=== PATIENT | male | born 1960 | race Caucasian/White ===

== ENCOUNTER → 2019-08-11 | Outpatient (CLI) | payer OTHER ==
[2014-10-14 09:45] VITALS: BP 124/77
[~2019-08-11] MED LIST: ALPR1TAB2 PO; ASPI-482 PO; ATOR40TA59 PO; CLOT15CR3 TP; EMPA25TA PO; FURO-69 PO; INSU100I13 SQ; LOSA100T14 PO; LOSA25TA PO; METF500T16 PO; NIAC500T PO; POTA20TA4 PO; SIMV20TA18 PO
== END ==
LOC: LAB 08:34
PROVIDERS: ATTEND Nurse Anesthetist, Certified Registered
DX: Z11.59 Encounter for screening for other viral diseases (principal)
CPT/HCPCS: U0003-CS

== ENCOUNTER → 2019-08-14 | Day surgery (SDC) | payer OTHER ==
[~2019-08-14] MED LIST changes: +ACETAMINOPHEN 325 MG TABLET PO PRN; +ALBUTEROL SULFATE 2.5 MG/3 ML NEBU. NEB PRN; +ATROPINE 0.5 MG/5 ML DISP.SYRIN. IV PRN; +GLYCOPYRROLATE 1 MG/5 ML VIAL. ONE; +ONDANSETRON PF 4 MG/2 ML VIAL. IV PRN; +PROPOFOL 10,000 MCG/ML (20ML) VIAL IV ONE; +diphenhydrAMINE 50 MG/ML VIAL IV PRN
[2019-08-14] MEDS: IV RINGERS SOLUTION,LACTATED 1,000 ML IV SCH (07:10)
[2019-08-14 08:47] VITALS: BP 136/75
--- NOTE | 2019-08-15 15:08 | PATHOLOGY ---
[facility] Accession Number: [id number] . 01 Material submitted: . PART A: cecum - CECAL POLYP PART B: colon - ASCENDING POLYP. Modifiers: ascending PART C: hepatic flexure - HEPATIC FLEXURE POLYP PART D: colon - TRANSVERSE POLYP X2. Modifiers: transverse PART E: colon - DESCENDING POLYP X2. Modifiers: descending PART F: colon - SIGMOID POLYP. Modifiers: sigmoid . 01 Clinical history: . Giardiasis . 02 Diagnosis: A. Colon biopsies, cecal polyp: - Tubular adenoma. . B. Colon biopsies, ascending colon polyp: - Hyperplastic polyp. . C. Colon biopsy, hepatic flexure polyp: - Hyperplastic mucosal-associated lymphoid aggregate. . D. Colon biopsies, transverse colon polyp x2: - Tubular adenoma. - Hyperplastic polyp. . E. Colon biopsies, descending colon polyp x2: - Hyperplastic polyps/prominent mucosal folds. . F. Colon biopsies, sigmoid polyp: - Hyperplastic polyp. (JPM:[facility] 08/15/2019) [facility] 08/15/2019 1503 Local . 02 Comment: There is no high-grade dysplasia or evidence of malignancy. (JP:[facility] 08/15/2019) . 02 Electronically signed: . Sam Fermin MD, Pathologist NPI- [id number] . 01 Gross description: . A. The specimen is received in formalin, labeled "Ki Widdice, cecal polyp". Received are two segments of pale rodriguez soft tissue ranging in size from 0.2 to 0.3 cm in maximum dimensions. The specimen is submitted entirely in cassette A1. . B. The specimen is received in formalin, labeled "Ki Widdice, ascending polyp". Received are two segments of pale rodriguez soft tissue ranging in size from 0.1 to 0.3 cm in maximum dimensions. The specimen is submitted entirely in cassette B1. . C. The specimen is received in formalin, labeled "Ki Widdice, hepatic flexure polyp". Received is a segment of pale rodriguez soft tissue measuring 0.4 cm in maximum dimensions. The specimen is submitted entirely in cassette C1. . D. The specimen is received in formalin, labeled "Ki Widdice, transverse polyp x2". Received is light rodriguez vegetative material and mixed with possible soft tissue measuring 0.8 x 0.7 x 0.2 cm in aggregate dimensions. The specimen is filtered and entirely submitted in cassette D1. . E. The specimen is received in formalin, labeled "Ki Widdice, descending polyp x2". Received are four segments of pale rodriguez soft tissue ranging in size from 0.4 to 0.6 cm in maximum dimensions. The specimen is submitted entirely in cassette E1. . F. The specimen is received in formalin, labeled "Ki Widdice, sigmoid polyp". Received are three segments of pale rodriguez soft tissue ranging in size from 0.4 to 0.6 cm in maximum dimensions. The specimen is submitted entirely in cassette F1. ([facility]; 08/14/2019) [facility] 08/15/2019 1013 Local . 02 Pathologist provided ICD-10: D12.0, K63.5, D12.3 . 02 CPT . 852625, 998838, 444120, 181217, 022835, 848113 Specimen Comment: A courtesy copy of this report has been sent to [phone], [phone] Specimen Comment: [id number] Specimen Comment: Report sent to / DR COTTON Performed at: 01 [facility] [address], [place] [id number] MD Juanjo Angulo MD Phone: [phone] Performed at: 02 [facility] [address] [place], [place] [id number] MD Sam Fermin MD Phone: [phone]
== END | disposition home or self-care (01) ==
LOC: SURG 06:30
PROVIDERS: ATTEND Internal Medicine Gastroenterology
DX: Z12.11 Encounter for screening for malignant neoplasm of colon (principal); K63.5 Polyp of colon; E78.00 Pure hypercholesterolemia, unspecified; I10 Essential (primary) hypertension; E66.9 Obesity, unspecified; Z68.30 Body mass index [BMI] 30.0-30.9, adult; Z88.8 Allergy status to other drugs, medicaments and biological substances; Z87.39 Personal history of other diseases of the musculoskeletal system and connective tissue
CPT/HCPCS: 45380; 45385; 88305; J2704; J3490; J7120; 45378

== ENCOUNTER 2020-12-19 07:39 | Emergency (ER) | payer OTHER ==
[~2020-12-19] VITALS: Ht 182.9 cm; Wt 97.0 kg
[~2020-12-19 07:39] MED LIST changes: -ACETAMINOPHEN 325 MG TABLET PO PRN; -ALBUTEROL SULFATE 2.5 MG/3 ML NEBU. NEB PRN; -ATROPINE 0.5 MG/5 ML DISP.SYRIN. IV PRN; -GLYCOPYRROLATE 1 MG/5 ML VIAL. ONE; -ONDANSETRON PF 4 MG/2 ML VIAL. IV PRN; +POTA-121 PO; -POTA20TA4 PO; -PROPOFOL 10,000 MCG/ML (20ML) VIAL IV ONE; -diphenhydrAMINE 50 MG/ML VIAL IV PRN
[2020-12-19 08:05] VITALS: BP 120/78
--- NOTE | 2020-12-19 08:49 | PHYS DOC ---
Past History Past Medical History: Diabetes, Hypertension Additional Past Medical Histor: jaundice Past Surgical History: No Surgical History Alcohol Use: None Drug Use: None General Adult EDM: Chief Complaint: FOOT INJURY PAIN HPI: HPI: 60-year-old male presents with left foot pain. The patient dropped a piece of metal on his foot on Sunday. He was wearing steel toed boots. He was able to manage the pain with ibuprofen on Sunday. He had some mild swelling yesterday and more tender. He cannot put his full weight on the foot. He woke up in the middle of the night with significant swelling of the foot and ecchymosis down around the toes. He had difficulty getting any sleep. It is now quite painful to put weight on the foot. He decided he should come in for evaluation. He denies any other injuries or concerns at this time. Review of Systems: Review of Systems: Constitutional: Denies fever or chills Eyes: Denies change in visual acuity HENT: Denies nasal congestion or sore throat Respiratory: Denies cough or shortness of breath Cardiovascular: Denies chest pain or edema GI: Denies abdominal pain, nausea, vomiting, bloody stools or diarrhea : Denies dysuria Musculoskeletal: Left foot pain Integument: Denies rash Neurologic: Denies headache, focal weakness or sensory changes Endocrine: Denies polyuria or polydipsia Lymphatic: Denies swollen glands Psychiatric: Denies depression or anxiety Allergies: Allergies: Allergies Coded Allergies Type Severity Reaction Last Updated Verified lisinopril Allergy Intermediate 11/28/13 Yes Physical Exam: PE: Constitutional: Well developed, well nourished, no acute distress, non-toxic appearance. [] HENT: Normocephalic, atraumatic, bilateral external ears normal, oropharynx mois t, no oral exudates, nose normal. [] Eyes: PERRLA, EOMI, conjunctiva normal, no discharge. [] Neck: Normal range of motion, no tenderness, supple, no stridor. [] Cardiovascular:Heart rate regular rhythm, no murmur [] Lungs & Thorax: Bilateral breath sounds clear to auscultation [] Abdomen: Bowel sounds normal, soft, no tenderness, no masses, no pulsatile masses. [] Skin: Warm, dry, no erythema, no rash. [] Back: No tenderness, no CVA tenderness. [] Extremities: Tenderness over the mid dorsal foot, ecchymosis at the base of the toes, midfoot swelling. [] Neurologic: Alert and oriented X 3, normal motor function, normal sensory function, no focal deficits noted. [] Psychologic: Affect normal, judgement normal, mood normal. [] Current Patient Data: Vital Signs: Vital Signs Date Time Temp Pulse Resp B/P (MAP) Pulse Ox O2 Delivery O2 Flow Rate FiO2 12/19/20 08:05 97.5 78 16 120/78 (92) 94 EKG: EKG: [] Radiology/Procedures: Radiology/Procedures: [] Impressions: EXAM: Left foot, 3 views. HISTORY: Trauma. COMPARISON: None. FINDINGS: 3 views of the left foot are obtained. There is no acute fracture, dislocation or subluxation. There is a small plantar spur. No radiodense foreign body is seen. IMPRESSION: No acute osseous finding. Electronically signed by: Adrianne Grace MD (12/19/2020 9:19 AM) [id number] DICTATED AND SIGNED BY: ADRIANNE GRACE MD DATE: 12/19/20917 CC: FELIX EVANS DO; MARGARETTE COTTON MD ~MTH0 0 Heart Score: C/O Chest Pain: N/A Risk Factors: Risk Factors: DM, Current or recent (<one month) smoker, HTN, HLP, family history of CAD, obesity. Risk Scores: Score 0 - 3: 2.5% MACE over next 6 weeks - Discharge Home Score 4 - 6: 20.3% MACE over next 6 weeks - Admit for Clinical Observation Score 7 - 10: 72.7% MACE over next 6 weeks - Early Invasive Strategies Course & Med Decision Making: Course & Med Decision Making Pertinent Labs and Imaging studies reviewed. (See chart for details) The patient's x-ray is negative for fracture. This is likely a deep contusion and most of his pain is coming from the swelling. I have advised compression therapy as well as ice. I will discharge him with Powersite 5/325 to help with the pain. He is stable for discharge at this time. [] Dragon Disclaimer: Dragon Disclaimer: This electronic medical record was generated, in whole or in part, using a voice recognition dictation system. Departure Departure: Impression: Primary Impression: Contusion of foot, left Disposition: HOME / SELF CARE / HOMELESS Condition: STABLE Referrals: MARGARETTE COTTON MD (PCP) Patient Instructions: Foot Contusion, Riim-hn-Suif Scripts Hydrocodone/Acetaminophen (Hydrocodone-Acetamin 5-325 mg) 1 Each Tablet 1 EACH PO Q4-6HRS PRN for PAIN, #10 TAB Prov: FELIX EVANS DO 12/19/20 FELIX EVANS DO Dec 19, 2020 08:49
--- NOTE | 2020-12-19 09:21 | RAD ---
EXAM: Left foot, 3 views. HISTORY: Trauma. COMPARISON: None. FINDINGS: 3 views of the left foot are obtained. There is no acute fracture, dislocation or subluxati on. There is a small plantar spur. No radiodense foreign body is seen. IMPRESSION: No acute osseous finding. Electronically signed by: Adrianne Grace MD (12/19/2020 9:19 AM) [id number]
[2020-12-19] MEDS ORDERED: HYDR-2759 PO (09:40)
== END 2020-12-19 10:27 | disposition home or self-care (01) ==
LOC: ER 07:39
DX: S90.32XA Contusion of left foot, initial encounter (principal); E11.9 Type 2 diabetes mellitus without complications; I10 Essential (primary) hypertension; Z88.8 Allergy status to other drugs, medicaments and biological substances; W20.8XXA Other cause of strike by thrown, projected or falling object, initial encounter; Y93.89 Activity, other specified; Y92.89 Other specified places as the place of occurrence of the external cause; Y99.8 Other external cause status
CPT/HCPCS: 73630; 99283